=== PATIENT | male | born 1960 | race Caucasian/White ===

== ENCOUNTER 2018-01-01 12:06 | Inpatient (IN) ==
[2018-01-01] MEDS ORDERED: Morphine Inj 4 MG/ML Vial IV.PUSH ONE ×2 (12:18→13:33)
[2018-01-01] MEDS ORDERED: Tetanus/Diphtheria Toxoid Adult Vaccine Inj 0.5 ML Vial IM ONE (12:18)
[2018-01-01] MEDS ORDERED: Sod Chloride 0.9% Inj 1,000 ML IV.SIG SCH (12:30)
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
[2018-01-01 13:15] LABS: Baso # (Auto) 0.1 th/mm3 (0.0-0.2); Baso % (Auto) 0.5 % (0.0-2.0); Eos # (Auto) 0.1 th/mm3 (0.0-0.4); Eos % (Auto) 0.7 % (0.0-4.0); Hematocrit 42.9 % (39.0-51.0); Hemoglobin 14.3 gm/dL (13.0-17.0); Lymph # (Auto) 1.7 th/mm3 (1.0-4.8); Lymph % (Auto) 12.2 % (9.0-44.0); Mean Corpuscular HGB Conc 33.4 % (32.0-36.0); Mean Corpuscular Hemoglobin 30.7 pg (27.0-34.0); Mean Corpuscular Volume 91.8 fL (80.0-100.0); Mean Platelet Volume 8.1 fL (7.0-11.0); Mono # (Auto) 0.7 th/mm3 (0.0-0.9); Neut # (Auto) 11.5 th/mm3 (1.8-7.7); Neut % (Auto) 81.6 % (16.0-70.0); Platelet Count 246 th/mm3 (150-450); Red Blood Count 4.67 mil/mm3 (4.50-5.90); Red Cell Distribution Width 13.2 % (11.6-17.2); White Blood Count 14.1 th/mm3 (4.0-11.0)
[2018-01-01] MEDS ORDERED: ceFAZolin 2 GM Premix Inj 2 GM/50 ML PIGGYBACK IV.SIG ONE (13:33)
[2018-01-01 13:38] LABS: Alanine Aminotransferase 36 U/L (12-78)
[2018-01-01 13:46] LABS: Albumin 3.7 g/dL (3.4-5.0); Alkaline Phosphatase 67 U/L (45-117); Anion Gap 7 meq/L (5-15); Aspartate Aminotransferase 41 U/L (15-37); Blood Urea Nitrogen 15 mg/dL (7-18); Calcium 8.5 mg/dL (8.5-10.1); Carbon Dioxide 25.5 meq/L (21.0-32.0); Chloride 109 meq/L (98-107); Creatine Kinase 273 U/L (39-308); Glomerular Filtration Rate 69 mL/min (>89); Glucose,Random 104 mg/dL (74-106); Sodium 141 meq/L (136-145); Total Protein 7.5 g/dL (6.4-8.2)
[2018-01-01 13:47] LABS: Potassium 4.4 meq/L (3.5-5.1)
[2018-01-01] MEDS ORDERED: Lidocaine 1% Inj 50 ML Vial INFILTRATN ONE (15:02)
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
[2018-01-01] MEDS ORDERED: HYDROmorphone PF Inj 1 MG/ML Ampul IV.PUSH PRN ×2 (16:59→17:03)
--- NOTE | 2018-01-01 17:25 | P.HPCC ---
History of Present Illness Primary Care Physician: Conor Harrison MD History of Present Illness: 57 y.o male involved in [facility]-was seen and worked up by the ER,patient is complaining of back pain,thoracic pain right side anterior,he is HD stable, neuro intact,moving all 4 extremities-he has a T12 fx,first toe fx and large open wound plantar surface left Inpatient Certification: I certify that the inpatient services were ordered in accordance with Medicare regulations governing the order. This includes certification that hospital inpatient services are reasonable and necessary and in the case of services not specified as inpatient-only under 42 CFR 419.22(n), that they are appropriately provided as inpatient services in accordance to with the 2-midnight benchmark under 43 CFR 412.3(e) Estimated Total Length of Stay (Days): 2 Plans for Post Hospital Care: Home Review of Systems All other systems reviewed negative except as stated [facility] - History History Provided By: Patient - Medical History Medical History: Medical History (Last Updated 01/01/18 @ 12:22 by Liliana Etienne) Hypertension - Tobacco History Smoking Status: Former smoker - Alcohol History How Often Do You Have a Drink Containing Alcohol: 2 to 3 times a week - Substance Use History Substance History: No History of Abuse - Travel History Recent Travel in the [place] Within the Last 8 Weeks: No Recent Travel Out of the Country Within the Last 8 Weeks: No - Immunization History Tetanus Immunization: Unsure Medications and Allergies Active Medications: Active Medications Chlorhexidine Gluconate (Chlorhexidine 2% Cloth) 3 pack TOPICAL DAILY@0400 [facility] Stop: 01/07/18 03:59 Chlorhexidine Gluconate (Chlorhexidine 2% Cloth) 3 pack TOPICAL DAILY@0400 PRN PRN Reason: Extra cloth needed Stop: 01/07/18 03:59 Docusate Sodium (Colace) 100 mg PO BID [facility] Hydromorphone HCl (Dilaudid Pf Inj) 1 mg IV.PUSH Q3HR PRN PRN Reason: PAIN SCALE 6 TO 10 Hydromorphone HCl (Dilaudid Pf Inj) 0.5 mg IV.PUSH Q3H PRN PRN Reason: PAIN SCALE 4 TO 6 MODERATE Lactated Ringer's (Lr 1000 Ml Inj) 1,000 mls @ 100 mls/hr IV.CONT .Q10H [facility] Ketorolac Tromethamine (Toradol Inj) 15 mg IV.PUSH Q6H [facility] Stop: 01/03/18 23:59 Methocarbamol (Robaxin) 500 mg PO Q8HR [facility] Ondansetron HCl (Zofran Inj) 4 mg IV.PUSH Q6H PRN PRN Reason: NAUSEA OR VOMITING Allergies Allergy/AdvReac Type Severity Reaction Status Date / Time No Known Allergies Allergy Verified 01/01/18 12:20 Home Medications Medication Instructions Recorded Confirmed Type No Known Home Medications 01/01/18 01/01/18 History Results - Labs CBC & Chem 7: 01/01/18 12:40 01/01/18 12:40 Labs: Short CBC 01/01/18 Range/Units 12:40 WBC 14.1 H (4.0-11.0) th/mm3 Hgb 14.3 (13.0-17.0) gm/dL Hct 42.9 (39.0-51.0) % Plt Count 246 (150-450) th/mm3 BMP 01/01/18 12:40 Sodium 141 Potassium 4.4 Chloride 109 H Carbon Dioxide 25.5 BUN 15 Creatinine 1.10 Calcium 8.5 Cardiac Enzymes 01/01/18 Range/Units 12:40 Total Creatine Kinase 273 (39-308) U/L Liver Function 01/01/18 Range/Units 12:40 Total Bilirubin 0.6 (0.2-1.0) mg/dL AST 41 H (15-37) U/L ALT 36 (12-78) U/L Alkaline Phosphatase 67 (45-117) U/L Albumin 3.7 (3.4-5.0) g/dL - Imaging Impressions Abdomen/Pelvis CT 01/01/18 12:18 CONCLUSION: 1. Compression deformity of T12, with the anterior vertebral body compressed to a third of the original anterior vertebral body. Chest X-Ray 01/01/18 12:18 CONCLUSION: Negative examination. Foot X-Ray 01/01/18 12:18 CONCLUSION: Comminuted fracture involving the first distal phalangeal bone. Lumbar Spine CT 01/01/18 12:18 CONCLUSION: 1. Mild anterior compression fracture at T12. No significant retropulsion of posterior fragments. 2. No spondylolisthesis. Exam Vital signs: Vital Signs 01/01/18 12:20 01/01/18 14:52 Temperature 97.6 F Pulse Rate 66 94 H Respiratory Rate 18 15 Blood Pressure 128/69 121/69 Pulse Oximetry 98 97 Intake & Output 12/31/17 01/01/18 01/01/18 18:59 06:59 18:59 Intake Total 1050 / 1050 Balance 1050 / 1050 Weight 72.575 kg Intake: IV 1050 / 1050 NS Inj 1,000 ML @ 1000 mls/hr 1000 / 1000 IV.SIG BOLUS [facility] Rx#:[id number] Ancef 2 GM Premix Inj 2 gm In 50 / 50 50 ml @ 100 mls/hr IV.SIG ONCE ONE Rx#:[id number] - Constitutional no acute distress, average body habitus, cooperative - Routine HEENT Exam Head: Present: normocephalic, atraumatic Eye: Present: EOMI, PERRL ENT: Present: mucous membranes moist, oropharynx clear - Routine Neck Exam Present: supple, full ROM, trachea midline - Routine Chest/Breast/Axilla Exam Chest wall: Present: tenderness - Routine Respiratory Exam Present: CTA bilaterally - Routine Cardiovascular Exam Present: RRR - Routine Abdominal Exam Present: soft - Routine Extremities Exam Present: full ROM, pulses intact, normal capillary refill - Routine Skin Exam Present: intact - Routine Neurological Exam Present: alert, oriented X3, normal tone, normal speech Caprini VTE Risk Assessment Caprini VTE Risk Assessment: Moderate/High Risk (score >= 2) (tr) VTE Pharmacological Exception Reason: High risk for bleeding Caprini Risk Assessment Model: Point Value = 1 Point Value = 2 Point Value = 3 Point Value = 5 Age 41-60 Minor surgery BMI > 25 kg/m2 Swollen legs Varicose veins or History of unexplained or recurrent spontaneous Oral contraceptives or hormone replacement Sepsis (< 1 month) Serious lung disease, including pneumonia (< 1 month) Abnormal pulmonary function Acute myocardial infarction Congestive heart failure (< 1 month) History of inflammatory bowel disease Medical patient at bed rest Age 61-74 Arthroscopic surgery Major open surgery (> 45 min) Laparoscopic surgery (> 45 min) Malignancy Confined to bed (> 72 hours) Immobilizing plaster cast Central venous access Age >= 75 History of VTE Family history of VTE Factor V Leiden Prothrombin [id number] Lupus anticoagulant Anticardiolipin antibodies Elevated serum homocysteine Heparin-induced thrombocytopenia Other congenital or acquired thrombophilia Stroke (< 1 month) Elective arthroplasty Hip, pelvis, or leg fracture Acute spinal cord injury (< 1 month) Prophylaxis Regimen: Total Risk Factor Score Risk Level Prophylaxis Regimen 0-1 Low Early ambulation 2 Moderate Order ONE of the following: *Sequential Compression Device (SCD) *Heparin 5000 units SQ BID 3-4 Higher Order ONE of the following medications: *Heparin 5000 units SQ TID *Enoxaparin/Lovenox 40 mg SQ daily (WT < 150 kg, CrCl > 30 mL/min) *Enoxaparin/Lovenox 30 mg SQ daily (WT < 150 kg, CrCl > 10-29 mL/min) *Enoxaparin/Lovenox 30 mg SQ BID (WT < 150 kg, CrCl > 30 mL/min) AND/OR *Sequential Compression Device (SCD) 5 or more Highest Order ONE of the following medications: *Heparin 5000 units SQ TID (Preferred with Epidurals) *Enoxaparin/Lovenox 40 mg SQ daily (WT < 150 kg, CrCl > 30 mL/min) *Enoxaparin/Lovenox 30 mg SQ daily (WT < 150 kg, CrCl > 10-29 mL/min) *Enoxaparin/Lovenox 30 mg SQ BID (WT < 150 kg, CrCl > 30 mL/min) AND *Sequential Compression Device (SCD) Assessment and Plan - Assessment and Plan Plan: T12 compression fx 1 st toe fx left open wound plantar surface admit to floor pain control ED sutured wound plantar surface podiatry consult NS consult
[2018-01-01] MEDS ORDERED: Docusate Sodium 100 MG Capsule PO SCH (21:00)
[2018-01-01] MEDS: Ketorolac Inj 30 MG/ML (IVP) Vial IV.PUSH SCH (23:11)
[2018-01-01] MEDS: Methocarbamol 500 MG Tablet PO SCH (23:12)
[2018-01-02] MEDS ORDERED: Chlorhexidine Gluconate 2% 1 Pack (2 Cloths) TOPICAL PRN (04:00)
[2018-01-02] MEDS ORDERED: Chlorhexidine Gluconate 2% 1 Pack (2 Cloths) TOPICAL SCH (04:00)
[2018-01-02] MEDS: Ketorolac Inj 30 MG/ML (IVP) Vial IV.PUSH SCH ×4 (05:47→22:12)
[2018-01-02] MEDS: Methocarbamol 500 MG Tablet PO SCH ×3 (05:48→22:12)
[2018-01-02] MEDS ORDERED: Sodium Chloride 0.9% 2 ML Flush PRN IV.FLUSH (07:14)
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
--- NOTE | 2018-01-02 10:18 | MR ---
EXAM DATE: 01/02/2018 9:52 AM EDT AGE/SEX: 57 years / Male INDICATIONS: Pain. T12 Fracture. CLINICAL DATA: This is the patient's initial encounter. Patient reports that signs and symptoms have been present for 2 days and indicates a pain score of 5/10. MEDICAL/SURGICAL HISTORY: Hypertension. . Right hand surgery. COMPARISON: No prior exams available for comparison. TECHNIQUE: Multiplanar, multisequence MRI of the thoracic spine was performed. FINDINGS: Significant degenerative changes are seen in the cervical spine including evaluated on today's exam o f the thoracic spine. Vertebrae: Normal vertebral body height. There is acute minimal anterior wedging of T12. Alignment: Normal. Cord: Normal position and configuration. T1-T2: The thecal sac has a normal diameter. No evidence of disc bulge or protrusion. T2-T3: The thecal sac has a normal diameter. No evidence of disc bulge or protrusion. T3-T4: The thecal sac has a normal diameter. No evidence of disc bulge or protrusion. T4-T5: The thecal sac has a normal diameter. No evidence of disc bulge or protrusion. T5-T6: The thecal sac has a normal diameter. No evidence of disc bulge or protrusion. T6-T7: The thecal sac has a normal diameter. No evidence of disc bulge or protrusion. T7-T8: The thecal sac has a normal diameter. No evidence of disc bulge or protrusion. T8-T9: The thecal sac has a normal diameter. No evidence of disc bulge or protrusion. T9-T10: The thecal sac has a normal diameter. No evidence of disc bulge or protrusion. T10-T11: The thecal sac has a normal diameter. No evidence of disc bulge or protrusion. T11-T12: Minimal acute anterior wedging of T12 with minimal increased signal in the superior endplate with no significant encroachment on the anterior thecal space. The thecal sac has a normal diameter . No evidence of disc bulge or protrusion. T12-L1: The thecal sac has a normal diameter. No evidence of disc bulge or protrusion. CONCLUSION: 1. Minimal anterior wedging T12 consistent with an acute compression fracture without cord impingeme nt. Electronically signed by: Asa Giles MD 01/02/2018 10:17 AM EDT
[2018-01-02 12:17] LABS: Baso % (Auto) 0.3 % (0.0-2.0); Eos % (Auto) 0.5 % (0.0-4.0); Hematocrit 41.2 % (39.0-51.0); Hemoglobin 14.1 gm/dL (13.0-17.0); Lymph % (Auto) 11.3 % (9.0-44.0); Mean Corpuscular HGB Conc 34.3 % (32.0-36.0); Mean Corpuscular Hemoglobin 31.5 pg (27.0-34.0); Mean Corpuscular Volume 91.9 fL (80.0-100.0); Mean Platelet Volume 7.9 fL (7.0-11.0); Mono # (Auto) 0.7 th/mm3 (0.0-0.9); Mono % (Auto) 8.1 % (0.0-8.0); Neut # (Auto) 7.2 th/mm3 (1.8-7.7); Neut % (Auto) 79.8 % (16.0-70.0); Platelet Count 203 th/mm3 (150-450); Red Blood Count 4.48 mil/mm3 (4.50-5.90); Red Cell Distribution Width 13.3 % (11.6-17.2)
[2018-01-02 12:43] LABS: Calcium 8.6 mg/dL (8.5-10.1); Carbon Dioxide 28.7 meq/L (21.0-32.0); Potassium 3.6 meq/L (3.5-5.1)
[2018-01-02] MEDS: amLODIPine 10 MG Tablet PO SCH (12:52)
[2018-01-02] MEDS: Lisinopril 10 MG Tablet PO SCH (12:52)
[2018-01-02] MEDS: Senna/Docusate Sodium 8.6/50 MG Tablet PO SCH ×2 (12:53→20:16)
[2018-01-02] MEDS: Famotidine 20 MG Tablet PO SCH ×2 (13:06→20:16)
[2018-01-02] MEDS: Sodium Chloride 0.9% 2 ML Flush BID IV.FLUSH SCH ×2 (13:08→20:16)
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
--- NOTE | 2018-01-02 17:24 | P.PNNS ---
Subjective Interval history: back pain, controlled on pain medications, also c/o of left great toe pain and heel pain Physical Exam Vital signs: Vital Signs 01/01/18 17:36 01/01/18 20:00 01/02/18 00:00 Temperature 98.3 F 98.2 F Pulse Rate 86 82 85 Respiratory Rate 15 18 18 Blood Pressure 113/65 123/73 107/56 L Pulse Oximetry 96 96 01/02/18 04:00 01/02/18 07:53 01/02/18 12:00 Temperature 97.6 F 98.3 F 98.4 F Pulse Rate 62 66 74 Respiratory Rate 18 18 18 Blood Pressure 114/69 122/59 L 136/74 Pulse Oximetry 98 96 98 01/02/18 16:00 Temperature 97.9 F Pulse Rate 59 L Respiratory Rate 18 Blood Pressure 120/71 Pulse Oximetry 98 Intake & Output 01/01/18 01/02/18 01/02/18 18:59 06:59 18:59 Intake Total 1050 / 1050 1000 / 1000 360 / 360 Output Total 600 / 600 700 / 700 Balance 1050 / 1050 400 / 400 -340 / -340 Weight 72.575 kg 80.6 kg Intake: IV 1050 / 1050 1000 / 1000 LR 1000 mL Inj 1,000 ML @ 100 1000 / 1000 mls/hr IV.CONT .Q10H [facility] Rx#: [id number] NS Inj 1,000 ML @ 1000 mls/hr 1000 / 1000 IV.SIG BOLUS [facility] Rx#:[id number] Ancef 2 GM Premix Inj 2 gm In 50 / 50 50 ml @ 100 mls/hr IV.SIG ONCE ONE Rx#:[id number] Oral 360 / 360 Output: Urine 600 / 600 700 / 700 Other: Date of Last Bowel Movement 01/01/18 01/01/18 Narrative: GENERAL: Laying in bed NAD. SKIN: Warm and dry. HEAD: Atraumatic. Normocephalic. EYES: Pupils equal and round. No scleral icterus. No injection or drainage. ENT: No nasal bleeding or discharge. Mucous membranes pink and moist. NECK: Trachea midline. No JVD. RESPIRATORY: No accessory muscle use. MUSCULOSKELETAL: Extremities without clubbing, cyanosis, or edema. No obvious deformities. NEUROLOGICAL: Awake and alert. No obvious cranial nerve deficits. Five out of 5 muscle strength in the arms and legs, except limited exam left foot and toe due to injuries. Normal speech. PSYCHIATRIC: Appropriate mood and affect; insight and judgment normal. Assessment and Plan - Plan 57 year old male T12 compression fx 1 st toe fx left open wound plantar surface I have reviewed the clinical and radiological findings Abdomen/Pelvis CT 01/01/18 12:18 CONCLUSION: 1. Compression deformity of T12, with the anterior vertebral body compressed to a third of the original anterior vertebral body. Chest X-Ray 01/01/18 12:18 CONCLUSION: Negative examination. Foot X-Ray 01/01/18 12:18 CONCLUSION: Comminuted fracture involving the first distal phalangeal bone. Lumbar Spine CT 01/01/18 12:18 CONCLUSION: 1. Mild anterior compression fracture at T12. No significant retropulsion of posterior fragments. 2. No spondylolisthesis. Neuro: neuro checks in a serial fashion. reviewed MRI thoracic spine, acute mild compression fracture of T12, will attempt nonop mgt with TLSO brace when out of bed Foot laceration. s/p repair Consult orthopedics or podiatry for eval Pulmonary: aggressive pulmonary toilette, nasotracheal suction, and breathing treatments with nebulizers. Daily PT and OT Renal: Continue to monitor closely urine output, BUN and creatinine Endocrine: Continue to Monitor serial Acu checks and SSI as needed in detail ID. Prophylactic antibiotics, monitor for signs of infection Protonix for stress ulcer prophylaxis Shorty hose and SCD's for DVT prophylaxis Further recommendations will be provided depending on the patient's clinical evaluation and follow up studies.
[2018-01-03 04:03] LABS: Baso # (Auto) 0.1 th/mm3 (0.0-0.2); Baso % (Auto) 0.7 % (0.0-2.0); Eos # (Auto) 0.2 th/mm3 (0.0-0.4); Eos % (Auto) 2.5 % (0.0-4.0); Lymph # (Auto) 1.2 th/mm3 (1.0-4.8); Lymph % (Auto) 14.1 % (9.0-44.0); Mean Corpuscular HGB Conc 34.9 % (32.0-36.0); Mean Corpuscular Hemoglobin 31.6 pg (27.0-34.0); Mean Corpuscular Volume 90.7 fL (80.0-100.0); Mean Platelet Volume 7.7 fL (7.0-11.0); Mono # (Auto) 0.8 th/mm3 (0.0-0.9); Mono % (Auto) 9.5 % (0.0-8.0); Neut # (Auto) 6.4 th/mm3 (1.8-7.7); Neut % (Auto) 73.2 % (16.0-70.0); Platelet Count 176 th/mm3 (150-450); Red Blood Count 4.41 mil/mm3 (4.50-5.90); Red Cell Distribution Width 13.3 % (11.6-17.2); White Blood Count 8.7 th/mm3 (4.0-11.0)
[2018-01-03 04:36] LABS: Calcium 8.1 mg/dL (8.5-10.1); Carbon Dioxide 29.1 meq/L (21.0-32.0); Potassium 3.9 meq/L (3.5-5.1)
[2018-01-03] MEDS: Ketorolac Inj 30 MG/ML (IVP) Vial IV.PUSH SCH ×4 (05:53→23:08)
[2018-01-03] MEDS: Methocarbamol 500 MG Tablet PO SCH ×3 (05:53→23:08)
[2018-01-03] MEDS: Enoxaparin Inj 40 MG/0.4 ML Syringe SQ SCH (08:53)
[2018-01-03] MEDS: Lisinopril 10 MG Tablet PO SCH (08:54)
[2018-01-03] MEDS: amLODIPine 10 MG Tablet PO SCH (08:54)
[2018-01-03] MEDS: Sodium Chloride 0.9% 2 ML Flush BID IV.FLUSH SCH ×2 (08:54→20:45)
[2018-01-03] MEDS: Senna/Docusate Sodium 8.6/50 MG Tablet PO SCH ×2 (08:54→20:43)
[2018-01-03] MEDS: Famotidine 20 MG Tablet PO SCH ×2 (08:54→20:43)
--- NOTE | 2018-01-03 15:27 | P.DCO ---
- Physical Therapy Order: Evaluate and treat, Improve ambulation, Strength and gait training - Home Health Nursing Order: Nursing assessment with vital signs - Case Management Consult Yes - Certification I have seen patient Cayden Jameson on 01/03/18. My clinical findings support the need for the requested home health care services because: Limited mobility due to disease progression, Deconditioned with increased weakness, Limited ability to care for self I certify that my clinical findings support that this patient is homebound because: Unsteady gait/balance
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
[2018-01-04] MEDS: Methocarbamol 500 MG Tablet PO SCH ×2 (06:47→14:54)
[2018-01-04] MEDS: Famotidine 20 MG Tablet PO SCH (09:55)
[2018-01-04] MEDS: Lisinopril 10 MG Tablet PO SCH (09:55)
[2018-01-04] MEDS: Enoxaparin Inj 40 MG/0.4 ML Syringe SQ SCH (09:55)
[2018-01-04] MEDS: amLODIPine 10 MG Tablet PO SCH (09:55)
[2018-01-04] MEDS: Sodium Chloride 0.9% 2 ML Flush BID IV.FLUSH SCH (09:56)
[2018-01-04] MEDS: Senna/Docusate Sodium 8.6/50 MG Tablet PO SCH (09:56)
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
== END 2018-01-04 16:39 | disposition home health service (06) ==
LOC: NEPE 12:06 → NEDA 16:21 → N05 18:37
PROVIDERS: ADMIT Surgery Trauma Surgery; ATTEND Surgery Trauma Surgery